=== PATIENT | female | born 1990 | race Caucasian/White ===

== ENCOUNTER 2021-11-11 10:48 | Outpatient (CLI) | payer BC, SELFPAY ==
[2021-11-11 11:19] LABS: HCG Quantitative 55.98 mIU/mL
== END 2021-11-11 10:49 | disposition home or self-care (01) ==
PROVIDERS: Visit Provider Family Medicine
DX: O20.9 Hemorrhage in early pregnancy, unspecified (principal); Z3A.00 Weeks of gestation of pregnancy not specified
CPT/HCPCS: 84702

== ENCOUNTER 2022-07-31 15:19 | Outpatient (CLI) | payer BC, SELFPAY ==
--- NOTE | 2022-07-31 | US_ITS ---
WS: [id number] ULTRASOUND OB FOCUSED HISTORY: F/U OUTFLOW TRACkS COMPARISON: 06/07/2022 Single intrauterine gestation in breech position. Normal cervix measures 3.9 cm. Placenta is posterio r and lateral. Placenta grade 1. heart rate at 153 BPM. Normal four-chamber heart. Normal situs in size. Very good demonstration of the outflow tracts. Aorti c arch is normal. Normal size pulmonary artery. There is a small echogenic foci in the LEFT ventricle . Visually normal amniotic fluid. US/US OB limited [id number] IMPRESSION: 1. Normal follow-up examination of the cardiac outflow tracts. RVOT and LVOT a re negative. 2. Normal four-chamber heart 3. Breech.
== END 2022-07-31 15:20 | disposition home or self-care (01) ==
PROVIDERS: PCP Family Medicine; Visit Provider Family Medicine
DX: Z34.82 Encounter for supervision of other normal pregnancy, second trimester (principal); Z3A.00 Weeks of gestation of pregnancy not specified
CPT/HCPCS: 76815

== ENCOUNTER 2022-10-06 13:39 | Outpatient (CLI) | payer BC, SELFPAY ==
[2022-10-06 13:45] VITALS: RESP 18; BMI 37.4
[2022-10-06 14:02] VITALS: BP 133/80; PULSE 105
[2022-10-06 14:20] VITALS: BP 123/75; PULSE 84
[2022-10-06 14:35] VITALS: BP 121/64; PULSE 79
[2022-10-06 14:50] VITALS: BP 107/59; PULSE 87
== END 2022-10-06 14:49 | disposition home or self-care (01) ==
LOC: OPOB 13:44 → OBGYN 13:46
PROVIDERS: PCP Family Medicine; Visit Provider Family Medicine
DX: O26.899 Other specified pregnancy related conditions, unspecified trimester (principal); R60.9 Edema, unspecified; Z3A.00 Weeks of gestation of pregnancy not specified
CPT/HCPCS: 59025; 99211

== ENCOUNTER 2022-10-11 16:53 | Inpatient (IN) | payer BC, SELFPAY ==
[2022-10-11] VITALS (61 sets, daily range): BP systolic 102–135; BP diastolic 55–85; PULSE 64–116; RESP 16; TEMP 36.4–36.9; O2SAT 93–100; BMI 36.7
[2022-10-11 08:33] LABS: Basophils % 0.2 %; Eosinophils % 0.3 %; Hemoglobin 12.5 g/dL (11.5-15.3); Lymphocytes # 1.7 10^3/uL (0.8-4.8); Lymphocytes % 13.6 %; Mean Corpuscular HGB Conc 33.8 g/dL (30.0-36.0); Mean Corpuscular Hemoglobin 31.5 pg (28.0-34.0); Mean Corpuscular Volume 93.2 fl (81-99); Mean Platelet Volume 10.5 fL (7.4-10.4); Monocytes # 0.7 10^3/uL (0.2-0.9); Monocytes % 5.4 %; Neutrophils # 10.09 10^3/uL (1.8-7.7); Neutrophils % 79.6 %; Nucleated Red Blood Cells % 0 %; Platelet Count 205 10^3/cmm (130-400); Red Blood Count 3.97 10^6/uL (4.1-5.3); Red Cell Distribution Width 13.7 % (12.1-15.1); White Blood Count 12.7 10^3/uL (4.0-10.0)
[2022-10-11] MEDS: miSOPROStol 100 mcg tablet 25 MCG VAGINAL ×2 (08:44→13:31)
[2022-10-11] MEDS: lactated ringers 1,000 ML 999 ML IV ×2 (20:53→21:49)
--- NOTE | 2022-10-11 21:50 | ANES.PAUD2 ---
Pre-Anesthetic Update Pre-Anesthetic Assessment: Date of Surgery/Procedure: 10/11/22 Proposed Procedure: epidural Any changes to Pre-Anesthetic Assessment?: No Labs Last 48hrs: Short CBC 10/11/22 Range/Units 08:10 WBC 12.7 H (4.0-10.0) 10^3/ uL Hgb 12.5 (11.5-15.3) g/dL Hct 37.0 (37.0-47.0) % MCV 93.2 (81-99) fl Plt Count 205 (130-400) 10^3/c mm Neut % (Auto) 79.6 % Neut # (Auto) 10.09 H (1.8-7.7) 10^3/u L Vitals: Temperature 97.7 F 10/11/22 19:05 Pulse Rate 110 H 10/11/22 21:49 Pulse Rhythm Regular 10/11/22 09:17 Pulse Strength 3+ Normal 10/11/22 09:17 Respiratory Rate 16 10/11/22 08:24 Respiratory Effort Spontaneous, Non- Labored 10/11/22 09:17 Respiratory Depth Normal 10/11/22 09:17 Respiratory Patter n Normal 10/11/22 09:17 Blood Pressure 116/64 10/11/22 21:49 Pulse Oximetry 99 10/11/22 21:45 Oxygen Delivery Me thod Room Air 10/11/22 18:57 Exam: Pre-Anes Outpt Exam: alert, oriented x 3, clear to auscultation bilaterally and regular rate & rhythm Cardiac Studies: No Data to Display
--- NOTE | 2022-10-11 21:50 | ANES.PROC ---
Anesthesia Procedures Procedure/Date: 10/11/22 Epidural: Time Out Performed: Yes Consents Signed: Procedure Consent Consent: requested by attending/covering physician, from patient, from other, risks and benefits reviewed and patient agrees to proceed Lumbar Level: L3-L4 Epidural position: sitting Epidural procedure: sterile prep of area, 1% lidocaine to numb the area, 18 g needle, negative for paresthesia passed, neg for paresthesia, test dose given, 1.5% xylocaine 1:200k epi (5), 0.2% Ropivacaine bolus ml (5), placed PCEA, no systemic response, sterile dressing applied, L.U.D. no apparent complications and 0.2% Ropiavacaine @ mls/hr (13) Additional Comments: MURRAY at 5 cm, threaded to 11 cm. Patient reported pain of contractions went from 6/10 to 1/10
[2022-10-11] MEDS: dextrose 5%-lactated ringers 1,000 ML 125 ML IV (22:54)
[2022-10-12] VITALS (87 sets, daily range): BP systolic 97–158; BP diastolic 56–90; PULSE 74–113; RESP 14–16; TEMP 36.6–36.8; O2SAT 93–99
[2022-10-12] MEDS: alum-mag-hydroxide-sime 30 mL UDC PO (00:10)
[2022-10-12] MEDS: ondansetron 2 mg/ML SDV 2 mL 4 MG IVP (02:30)
--- NOTE | 2022-10-12 05:39 | PM.OPHPUD ---
Labor & Delivery H&P Update Date of Procedure: October 12, 2022 Date H&P Performed: 10/10/22 Admission Diagnosis: 32-year-old 1 at 40 weeks estimated gestational age presenting for induction due to postdates Other information: The patient presented to the hospital for induction. Her due date was October 08. Her had been unremarkable. Her blood type was O+. Her antibody screen was negative. Her infectious disease profile was within normal limits. She was GBS negative. Rubella immune. Drug screen negative. Related Problem List Diagnoses (1) 40 weeks gestation of : A&P Assessment and plan (1) 40 weeks gestation of : Induction will be initiated with Cytotec 25 mcg. We will then consider amniotomy and Pitocin depending on the response of her cervix. Status: Acute
--- NOTE | 2022-10-12 05:44 | PM.DELIVERY ---
Delivery Note: Date of delivery: October 12, 2022 Pre-delivery diagnoses: 1. 32-year-old 40 weeks and 4 days Post-delivery diagnoses: Status post spontaneous vaginal delivery Procedure: spontaneous vaginal delivery Delivering Physician: Tony Luis Estimated blood loss (mL): 150 Pre-Delivery Course: The patient presented to the hospital for induction. Cytotec 25 mcg x 2 was used to initiate the induction. An amniotomy was performed. Pitocin was then used. An epidural was placed. Delivery: DELIVERY: The patient progressed to complete without difficulty. She delivered a female with a weight of 7 pounds 15 ounces with Apgars of 8, 9. The baby was delivered from the JASEN position and placed on the mother's abdomen. The cord was then clamped and cut. There was a nuchal cord x1 which was easily reduced at the site of the perineum. There was no meconium. The placenta and 3 vessel cord were delivered intact shortly thereafter. The perineum and vaginal vault were carefully examined. She was noted to have several superficial first-degree lacerations. Her right vaginal wall had a laceration that had continued bleeding. 2 [id number] stitches were used for hemostasis. She also had a skin tear along her posterior midline transitioning to her perineum. That was also repaired with 3-0 Vicryl.. Both the mother and the baby were in stable condition. Post-Delivery Status: Good A&P Assessment and plan (1) Spontaneous vaginal delivery: I anticipate routine care (2) 40 weeks gestation of : Coding Level of Care Code Acute Code for Chg Fwd Diagnoses Spontaneous vaginal delivery O80 40 weeks gestation of Z3A.40
[2022-10-12] MEDS: lanolin oint 7 gm 1 APPLIC TOPICAL (08:03)
[2022-10-12] MEDS: docusate sodium 100 mg Capsule PO ×2 (08:04→20:22)
[2022-10-12] MEDS: prenatal vitamin Capsule 1 CAP PO (08:04)
[2022-10-12] MEDS: ibuprofen 800 mg tablet PO ×3 (08:04→20:22)
[2022-10-12] MEDS: benzocaine-menthol 78 gm Canister 1 SPRAY TOPICAL (08:04)
[2022-10-12 19:24] LABS: Hematocrit 30.5 % (37.0-47.0); Hemoglobin 10.1 g/dL (11.5-15.3); Mean Corpuscular HGB Conc 33.1 g/dL (30.0-36.0); Mean Corpuscular Hemoglobin 31.2 pg (28.0-34.0); Mean Corpuscular Volume 94.1 fl (81-99); Mean Platelet Volume 11.1 fL (7.4-10.4); Platelet Count 193 10^3/cmm (130-400); Red Blood Count 3.24 10^6/uL (4.1-5.3); Red Cell Distribution Width 13.7 % (12.1-15.1); White Blood Count 17.4 10^3/uL (4.0-10.0)
[2022-10-13 06:02] VITALS: BP 107/75; PULSE 85; RESP 16; TEMP 36.8; O2SAT 98
--- NOTE | 2022-10-13 06:37 | P.DS_ITS ---
Discharge Providers QA [employer]INE[employer] Date of Admission: 10/11/22 16:53 Date of Discharge: 10/13/22 Attending Provider at Admission: Tony Luis MD Attending Provider at Discharge: Tony Luis MD Primary Care Provider: Tony Luis MD Diagnoses at Discharge Discharge Diagnosis (1) Spontaneous vaginal delivery: Status: Acute (2) 40 weeks gestation of : Status: Acute Reason for Visit Reason for Visit: Induction Hospital Course Hospital Course The patient presented to the hospital for induction due to being over 40 weeks. Her induction was initiated with Cytotec. An amniotomy was performed. Pitocin was initiated. An epidural was placed. She progressed to complete and had an unremarkable delivery of a healthy appearing female . She had several first-degree tears 2 of which were repaired with 3-0 Vicryl. Her course has been unremarkable. There have been no complications. Her bleeding has been within normal limits. She has had some difficulty with breast-feeding but overall has been able to breast-feed adequately. Information Peripartum Data: Infant Delivery Method: Vaginal Physical Exam Narrative: The patient is alert. She appears comfortable. Her heart has a regular rate and rhythm with no murmurs appreciated. Lungs are clear to auscultation bilaterally. Her fundus is firm and below the umbilicus. Urinary Catheter Management: Murray: Cath Placed During This Visit: yes, but has since been removed by the nurse Reason for Continuing Indwelling Catheter: Decision to DC Catheter Urinary Catheter Date of Insertion: 10/11/22 Urinary Catheter Time of Insertion: 22:12 Date Urinary Catheter Removed: 10/12/22 Time Urinary Catheter Discontinued: 04:32 Discharge Data Studies Completed and Pending Laboratory Results WBC 17.4 10^3/uL (4.0-10.0) H 10/12/22 18:12 RBC 3.24 10^6/uL (4.1-5.3) L 10/12/22 18:12 Hgb 10.1 g/dL (11.5-15.3) L 10/12/22 18:12 Hct 30.5 % (37.0-47.0) L 10/12/22 18:12 MCV 94.1 fl (81-99) 10/12/22 18:12 MCH 31.2 pg (28.0-34.0) 10/12/22 18:12 MCHC 33.1 g/dL (30.0-36.0) 10/12/22 18:12 RDW 13.7 % (12.1-15.1) 10/12/22 18:12 Plt Count 193 10^3/cmm (130-400) 10/12/22 18:12 MPV 11.1 fL (7.4-10.4) H 10/12/22 18:12 Neut % (Auto) 79.6 % 10/11/22 08:10 Lymph % (Auto) 13.6 % 10/11/22 08:10 Garland % (Auto) 5.4 % 10/11/22 08:10 Eos % (Auto) 0.3 % 10/11/22 08:10 Baso % (Auto) 0.2 % 10/11/22 08:10 Neut # (Auto) 10.09 10^3/uL (1.8-7.7) H 10/11/22 08:10 Lymph # (Auto) 1.7 10^3/uL (0.8-4.8) 10/11/22 08:10 [place]land # (Auto) 0.7 10^3/uL (0.2-0.9) 10/11/22 08:10 Eos # (Auto) 0.0 10^3/uL (0.0-0.8) 10/11/22 08:10 Baso # (Auto) 0.0 10^3/uL (0.0-0.1) 10/11/22 08:10 Nucleated RBC % (auto) 0 % 10/11/22 08:10 Nucleated RBCs # 0.0 /100WBC 10/11/22 08:10 Vitals Last Vital Signs Temp 98.3 F 10/13/22 06:02 Pulse 85 10/13/22 06:02 Resp 16 10/13/22 06:02 BP 107/75 10/13/22 06:02 Pulse Ox 98 10/13/22 06:02 O2 Del Method Room Air 10/12/22 20:38 Discharge Plan Discharge Patient Disposition: Home Condition: Stable Prescriptions: New ibuprofen 800 mg Tablet 800 mg PO TID Qty: 45 0RF Continued 1 tab PO DAILY Discharge Orders: Discharge Order (Routine); Ordered 10/13/22 Ordered By: Tony Luis Referrals: Tony Luis MD [Primary Care Provider] - 6 Weeks Discharge Diet: Usual diet Discharge Activity: Limit activity as instructed Patient Instructions: Depression (DC), Bleeding (DC), Preeclampsia and Eclampsia After Delivery (GEN), Hemorrhage (DC), OB Discharge Report, OB Food/Drug Interaction Guide, OB Care at Home, Opioid Safety, OB Home Care, OB Proud Parent Packet, OB Vaginal Deliveries Discharge Attestations QA [employer]OM[employer] ENGINEER Time Spent in Discharge Care*: less than 30 min Coding Level of Care Code Acute Code for Chg Fwd Diagnoses Spontaneous vaginal delivery O80 40 weeks gestation of Z3A.40
--- NOTE | 2022-10-13 08:00 | ANE.PACU2 ---
Inpatient post-anesthesia follow up: Airway intact: Yes Vital signs: Temperature 97.6 F Pulse Rate 98 Respiratory Rate 16 Blood Pressure 120/76 Pulse Oximetry 98 Oxygen Delivery Me thod Room Air Oxygen Flow Rate Fraction of Inspir ed Oxygen Hydration adequate: Yes Nausea and vomiting: No Pain level: 1 Mental status: Baseline
[2022-10-13] MEDS: prenatal vitamin Capsule 1 CAP PO (09:57)
[2022-10-13] MEDS: ibuprofen 800 mg tablet PO (09:57)
[2022-10-13] MEDS: docusate sodium 100 mg Capsule PO (09:57)
[2022-10-13 10:00] VITALS: BP 120/76; PULSE 98; RESP 16; TEMP 36.4
== END 2022-10-13 10:40 | disposition home or self-care (01) | DRG 807 ==
LOC: OPOB 16:53 → OBGYN 16:53
PROVIDERS: Admitting Provider Family Medicine; PCP Family Medicine; Visit Provider Family Medicine
DX: O48.0 Post-term pregnancy (principal); Z37.0 Single live birth; Z3A.40 40 weeks gestation of pregnancy; O69.81X0 Labor and delivery complicated by cord around neck, without compression, not applicable or unspecified; O70.0 First degree perineal laceration during delivery
CPT/HCPCS: 12345; 36415; 51702; 59025; 59409; 85025; 85027; 96374; 98960; J2405; J2795; J7040; J7120; J7121